=== PATIENT | female | born 1995 | race Caucasian/White ===

== ENCOUNTER 2023-07-21 19:17 | Emergency (ER) | payer SELFPAY ==
[~2023-07-21] VITALS: Ht 170.2 cm; Wt 105.0 kg
[2023-07-21 19:23] VITALS: O2SAT 100
[2023-07-21] MEDS: LORAZEPAM 2MG/ML INJ IV ONE (20:29)
[2023-07-21] MEDS: ASPIRIN 81MG TABLET PO ONE (20:29)
[2023-07-21 20:30] LABS: BASOPHILS % 0.5 % (0.0-2.0); EOSINOPHILS % 1.1 % (0.0-5.0); HEMATOCRIT. 41.1 % (36.0-48.0); HEMOGLOBIN. 13.8 g/dL (12.0-16.0); LYMPHOCYTES % 18.6 % (20.0-50.0); MEAN CORPUSCULAR HEMOGLOBIN 29.7 pg (28.0-32.0); MEAN CORPUSCULAR HGB CONC 33.7 g/dL (31.0-37.0); MEAN CORPUSCULAR VOLUME 88.2 fL (81.0-99.0); MEAN PLATELET VOLUME 10.9 fl (7.4-10.4); MONOCYTES % 8.1 % (2.0-8.0); NEUTROPHILS % 71.7 % (40.0-76.0); PLATELET 260 x1000/uL (130-400); RED BLOOD CELL COUNT 4.65 mill/uL (4.2-5.4); RED CELL DISTRIBUTION WIDTH 13.8 % (11.6-14.6); WHITE BLOOD COUNT 8.1 x1000/uL (4.5-11.0)
[2023-07-21 21:28] LABS: CHLORIDE 108 mEq/L (98-107); POTASSIUM 3.9 mEq/L (3.5-5.1); SODIUM 136 mEq/L (136-145)
[2023-07-21 21:29] LABS: CALCIUM 9.3 mg/dL (8.7-10.4); CARBON DIOXIDE 22 mEq/L (21-32)
[2023-07-21 21:34] LABS: GLUCOSE 105 mg/dL (70-105); UREA NITROGEN BLOOD 20 mg/dL (9-23)
[2023-07-21 21:40] LABS: HCG SCREEN NEGATIVE
[2023-07-21 21:48] LABS: TROPONIN I HIGH SENSITIVITY < 4 ng/L (3.0-34)
[2023-07-21 22:33] VITALS: BP 5/64; PULSE 102; RESP 18; TEMP 98
== END 2023-07-21 22:36 | disposition home or self-care (01) ==
LOC: ER 19:17
DX: R07.89 Other chest pain (principal); R63.4 Abnormal weight loss; R42 Dizziness and giddiness
CPT/HCPCS: 80048; 84703; 83880; 85025; 85379; 84484; 36415; 71045; 93005; 96374; 99285; Z7610 ×6; J2060